=== PATIENT | female | born 1955 | race Caucasian/White ===

== ENCOUNTER 2017-05-02 15:23 | Emergency (ER) | payer OTHER ==
[2017-05-02 15:23] VITALS: BP 127/68
[~2017-05-02 15:23] MED LIST: LEVOFLOXACIN500 MG PO; PYRIDIUM200 MG PO
[2017-05-02] MEDS ORDERED: POTASSIUM CHLO10 MEQ PO (16:12)
[2017-05-02] MEDS ORDERED: TOUJEO SOL300 UNIT/1 SQ (16:12)
[2017-05-02] MEDS ORDERED: RANEXA500 M1 PO (16:12)
[2017-05-02] MEDS ORDERED: ATORVASTATIN CA40 M1 PO (16:13)
[2017-05-02] MEDS ORDERED: GLIMEPIRIDE4 M1 PO (16:13)
[2017-05-02] MEDS ORDERED: METFORMIN HCL500 MG PO (16:14)
[2017-05-02] MEDS ORDERED: GABAPENTIN400 MG PO (16:15)
[2017-05-02] MEDS ORDERED: TOPROL XL25 MG PO (16:16)
[2017-05-02] MEDS ORDERED: VENLAFAXINE HY150 M2 PO (16:16)
[2017-05-02] MEDS ORDERED: Zestril,Prinivi40 MG PO (16:16)
[2017-05-02] MEDS ORDERED: BUSPAR15 MG PO (16:17)
[2017-05-02] MEDS ORDERED: ZEGERID 40 MG1 EAC1 PO (16:17)
[2017-05-02] MEDS ORDERED: MAGNESIUM400 MG PO (16:18)
[2017-05-02] MEDS ORDERED: VITAMIN D5000 UNIT PO (16:18)
[2017-05-02] MEDS ORDERED: ASPIRIN81 M1 PO (16:19)
[2017-05-02] MEDS ORDERED: BENTYL10 MG PO (16:19)
[2017-05-02] MEDS ORDERED: NAPROSYN500 MG PO (17:15)
[2017-05-02] MEDS ORDERED: CYCLOBENZAPRINE5 M3 PO (17:16)
== END 2017-05-02 17:53 | disposition home or self-care (01) ==
LOC: ED 15:23
DX: S50.01XA Contusion of right elbow, initial encounter (principal); S60.211A Contusion of right wrist, initial encounter; Z90.710 Acquired absence of both cervix and uterus; Z98.890 Other specified postprocedural states; Z79.899 Other long term (current) drug therapy; Z79.82 Long term (current) use of aspirin; Z79.4 Long term (current) use of insulin; Z88.2 Allergy status to sulfonamides; Z88.1 Allergy status to other antibiotic agents; Z88.8 Allergy status to other drugs, medicaments and biological substances; Z91.013 Allergy to seafood; W01.198A Fall on same level from slipping, tripping and stumbling with subsequent striking against other object, initial encounter; Y93.89 Activity, other specified; Y92.89 Other specified places as the place of occurrence of the external cause; Y99.9 Unspecified external cause status

== ENCOUNTER → 2018-11-28 | Outpatient (CLI) | payer OTHER ==
[~2018-11-28] MED LIST changes: +ASPIRIN81 M1 PO; +ATORVASTATIN CA40 M1 PO; +BENTYL10 MG PO; +BUSPAR15 MG PO; +CYCLOBENZAPRINE5 M3 PO; +GABAPENTIN400 MG PO; +GLIMEPIRIDE4 M1 PO; +MAGNESIUM400 MG PO; +METFORMIN HCL500 MG PO; +NAPROSYN500 MG PO; +POTASSIUM CHLO10 MEQ PO; +RANEXA500 M1 PO; +TOPROL XL25 MG PO; +TOUJEO SOL300 UNIT/1 SQ; +VENLAFAXINE HY150 M2 PO; +VITAMIN D5000 UNIT PO; +ZEGERID 40 MG1 EAC1 PO; +Zestril,Prinivi40 MG PO
== END | disposition home or self-care (01) ==
LOC: LAB 07:11
DX: R19.8 Other specified symptoms and signs involving the digestive system and abdomen (principal)